=== PATIENT | male | born 1955 | race Caucasian/White ===

== ENCOUNTER 2016-10-16 12:31 | Emergency (ER) | payer OTHER ==
[2016-10-16 16:40] LABS: BILIRUBIN NEGATIVE (NEGATIVE); BLOOD NEGATIVE Ery/uL (NEGATIVE); CLARITY CLEAR (CLEAR); COLOR COLORLESS (YELLOW); GLUCOSE (U) 3+ mg/dL (NORMAL); KETONE (U) TRACE mg/dL (NEGATIVE); LEUKOCYTES NEGATIVE Leu/uL (NEGATIVE); NITRITE NEGATIVE (NEGATIVE); PROTEIN NEGATIVE (NEGATIVE); SPECIFIC GRAVITY <=1.005 (1.001-1.030); UROBILINOGEN 0.2 mg/dL (0.2-1.0)
== END 2016-10-16 17:00 | disposition home or self-care (01) ==
LOC: FER 12:31
PROVIDERS: Nurse Practitioner Family
DX: B37.49 Other urogenital candidiasis (principal); I10 Essential (primary) hypertension; F43.10 Post-traumatic stress disorder, unspecified; F32.9 Major depressive disorder, single episode, unspecified
CPT/HCPCS: 81003; 87070; 87077; 87186; 99283

== ENCOUNTER 2022-01-02 12:13 | Inpatient (IN) | payer MEDICARE ==
[~2022-01-02] VITALS: Ht 175.3 cm; Wt 73.1 kg
[~2022-01-02 12:13] MED LIST: ASPIRIN EC81 MG PO; AZITHROMYCIN250 MG PO; DIVALPROEX SOD500 M1 PO; FEOSOL325 MG PO; FLEXERIL10 MG PO; GLUCOPHAGE500 MG PO; IMDUR 30MG TABL30 MG PO; LIPITOR20 MG PO; LOPRESSOR25 MG PO; LOVAZA1 GM PO; MELATONIN3 MG PO; MELOXICAM15 MG PO; MIRTAZAPINE 15M15 MG PO; PRINIVIL10 MG PO; PROTONIX 40MG T40 MG PO; QUETIAPINE FUM400 MG PO; RISPERDAL2 MG PO; SEROQUEL 100MG100 MG PO; VITAMIN D400 UNI2 PO; VITAMINS FOR H1 EACH PO; WELLBUTRIN100 MG PO
[2022-01-02 13:14] LABS: CORONAVIRUS 2019 SARS-COV-2 NEGATIVE (NEGATIVE); INFLUENZA A NAA NEGATIVE (NEGATIVE)
[2022-01-02 13:33] LABS: LACTIC ACID 6.4 mmol/L (0.4-1.9)
[2022-01-02 13:39] LABS: ALBUMIN 3.4 g/dL (3.4-5.0); BILIRUBIN - TOTAL 2.6 mg/dL (0.2-1.0); BUN/CREAT RATIO (CALC) 20.4 RATIO; CREATININE 0.93 mg/dL (0.67-1.17); GLOBULIN (CALCULATION) 4.3 g/dL; TOTAL PROTEIN 7.7 g/dL (6.4-8.2)
[2022-01-02 13:44] LABS: POTASSIUM 2.3 mmol/L (3.5-5.1)
[2022-01-02 14:43] LABS: BASOPHIL 0.1 % (0-2); EOSINOPHIL 0 % (0-7); HCT 35.3 % (42.0-52.0); HGB 13.3 g/dl (13.2-18.0); LYMPHOCYTE 10.9 % (15-48); MCH 34.7 pg (25.0-31.0); MCHC 37.7 g/dL (32.0-36.0); MCV 92.2 fL (78.0-100.0); MONOCYTE 3.7 % (0-12); MPV 11.4 fL (6.0-9.5); NEUTROPHIL 83.2 % (41-80); NRBC 0; PLT 157 K/uL (150-400); RBC 3.83 M/uL (4.70-6.00); WBC 8.2 K/uL (4.0-10.5)
[2022-01-02 16:16] LABS: BILIRUBIN NEGATIVE (NEGATIVE); BLOOD NEGATIVE Ery/uL (NEGATIVE); CLARITY CLEAR (CLEAR); COLOR YELLOW (YELLOW); GLUCOSE (U) NORMAL (NORMAL); LEUKOCYTES NEGATIVE Leu/uL (NEGATIVE); NITRITE NEGATIVE (NEGATIVE); PROTEIN TRACE (LOW) mg/dL (NEGATIVE); SPECIFIC GRAVITY <=1.005 (1.001-1.030); pH 6.5 (5.0-9.0)
[2022-01-02 16:27] LABS: BACTERIA TRACE; URINARY RBC RARE
[2022-01-02 16:31] LABS: AMPHETAMINES NEGATIVE (NEGATIVE); BARBITURATES NEGATIVE (NEGATIVE); ECSTASY (MDMA) NEGATIVE (NEGATIVE); MARIJUANA (THC) POSITIVE (NEGATIVE); METHADONE NEGATIVE (NEGATIVE); OPIATES NEGATIVE (NEGATIVE); OXYCODONE NEGATIVE (NEGATIVE)
[2022-01-02 17:53] LABS: CREATININE 0.74 mg/dL (0.67-1.17); POTASSIUM 2.5 mmol/L (3.5-5.1)
--- NOTE | 2022-01-02 19:32 | NUR ---
RECEIVED REPORT FROM ED RN AND SPOKE WITH REGARDING PATIENT STATUS. PATIENT IS NONCOMPLIANT AND WAS RELUCTANT TO ANSWER QUESTIONS WITH STAFF. PATIENT WAS BROUGHT TO ICU AND REPORT WAS GIVEN TO NIGHTSHIFT RN. NOTHING FURTHER WAS NEEDED. STAFF WAS GETTING PATIENT SETTLED IN SHORTLY AFTER SHIFT CHANGE
[2022-01-02 19:48] LABS: LACTIC ACID 3.4 mmol/L (0.4-1.9)
[2022-01-02 20:07] LABS: BUN 25 mg/dL (7-18); BUN/CREAT RATIO (CALC) 34.2 RATIO; C-REACTIVE PROTEIN > 18.00 mg/dL (<=0.90); CHLORIDE 104 mmol/L (98-107); CO2 (BICARBONATE) 24 mmol/L (21-32); CREATININE 0.73 mg/dL (0.67-1.17); GLUCOSE 117 mg/dL (74-106); MAGNESIUM 2.5 mg/dL (1.8-2.4); POTASSIUM 3.7 mmol/L (3.5-5.1)
[2022-01-02 23:13] LABS: INR 1.5 (0.9-1.2); PROTHROMBIN TIME 17.4 SECONDS (11.8-13.4)
[2022-01-02 23:19] LABS: BUN/CREAT RATIO (CALC) 25.7 RATIO; CREATININE 0.7 mg/dL (0.67-1.17); POTASSIUM 2.7 mmol/L (3.5-5.1)
[2022-01-03 06:00] LABS: BASOPHIL 0.3 % (0-2); EOSINOPHIL 1.7 % (0-7); HCT 33.5 % (42.0-52.0); HGB 12.4 g/dl (13.2-18.0); LYMPHOCYTE 35.9 % (15-48); MCH 34.9 pg (25.0-31.0); MCV 94.4 fL (78.0-100.0); MONOCYTE 4.5 % (0-12); MPV 11.6 fL (6.0-9.5); NEUTROPHIL 55.4 % (41-80); NRBC 0; PLT 164 K/uL (150-400); RBC 3.55 M/uL (4.70-6.00); RDW 13.9 % (11.5-14.0)
[2022-01-03 07:14] LABS: ALBUMIN 2.8 g/dL (3.4-5.0); BILIRUBIN - DIRECT 0.4 mg/dL (0.00-0.20); BILIRUBIN - TOTAL 1.1 mg/dL (0.2-1.0); C-REACTIVE PROTEIN 12.5 mg/dL (<=0.90); CREATININE 0.64 mg/dL (0.67-1.17); GLOBULIN (CALCULATION) 3.8 g/dL; TOTAL PROTEIN 6.6 g/dL (6.4-8.2)
[2022-01-03 08:42] LABS: URINE CREATININE 84.58 mg/dL (29.00-226.00)
[2022-01-03 11:45] LABS: CREATININE 0.6 mg/dL (0.67-1.17); POTASSIUM 3.3 mmol/L (3.5-5.1)
[2022-01-03 17:39] LABS: BUN/CREAT RATIO (CALC) 28.1 RATIO; CREATININE 0.64 mg/dL (0.67-1.17); POTASSIUM 3.1 mmol/L (3.5-5.1)
[2022-01-03 23:56] LABS: BUN/CREAT RATIO (CALC) 25.9 RATIO; CREATININE 0.58 mg/dL (0.67-1.17); POTASSIUM 3.5 mmol/L (3.5-5.1)
[2022-01-04 05:30] LABS: BASOPHIL 0.4 % (0-2); EOSINOPHIL 1.4 % (0-7); HCT 32.1 % (42.0-52.0); LYMPHOCYTE 35.4 % (15-48); MCHC 37.4 g/dL (32.0-36.0); MCV 93.6 fL (78.0-100.0); MONOCYTE 6.2 % (0-12); MPV 11.1 fL (6.0-9.5); NEUTROPHIL 53.2 % (41-80); NRBC 0; PLT 163 K/uL (150-400); RBC 3.43 M/uL (4.70-6.00); RDW 13.7 % (11.5-14.0)
[2022-01-04 05:47] LABS: ALBUMIN 2.9 g/dL (3.4-5.0); BILIRUBIN - DIRECT 0.4 mg/dL (0.00-0.20); BILIRUBIN - TOTAL 0.9 mg/dL (0.2-1.0); BUN/CREAT RATIO (CALC) 21.9 RATIO; CREATININE 0.64 mg/dL (0.67-1.17); GLOBULIN (CALCULATION) 3.8 g/dL; POTASSIUM 3.5 mmol/L (3.5-5.1); TOTAL PROTEIN 6.7 g/dL (6.4-8.2)
[2022-01-04 15:32] LABS: CREATININE 0.6 mg/dL (0.67-1.17); POTASSIUM 3.4 mmol/L (3.5-5.1)
[2022-01-05 04:57] LABS: BASOPHIL 0.4 % (0-2); HCT 31.8 % (42.0-52.0); HGB 11.8 g/dl (13.2-18.0); LYMPHOCYTE 39.9 % (15-48); MCHC 37.1 g/dL (32.0-36.0); MCV 94.4 fL (78.0-100.0); MONOCYTE 4.8 % (0-12); NEUTROPHIL 51.9 % (41-80); NRBC 0; PLT 157 K/uL (150-400); RBC 3.37 M/uL (4.70-6.00); RDW 13.9 % (11.5-14.0)
[2022-01-05 05:26] LABS: ALBUMIN 2.6 g/dL (3.4-5.0); BILIRUBIN - DIRECT 0.3 mg/dL (0.00-0.20); BILIRUBIN - TOTAL 0.7 mg/dL (0.2-1.0); BUN/CREAT RATIO (CALC) 16.9 RATIO; CREATININE 0.59 mg/dL (0.67-1.17); FT4 (FREE T4) 1.3 ng/dL (0.76-1.46); GLOBULIN (CALCULATION) 3.3 g/dL; PHOSPHORUS 2.7 mg/dL (2.6-4.7); POTASSIUM 4.6 mmol/L (3.5-5.1); TOTAL PROTEIN 5.9 g/dL (6.4-8.2)
[2022-01-05 05:30] LABS: MAGNESIUM 2.1 mg/dL (1.8-2.4)
[2022-01-05 14:45] LABS: BUN/CREAT RATIO (CALC) 16.4 RATIO; CREATININE 0.61 mg/dL (0.67-1.17); POTASSIUM 4.7 mmol/L (3.5-5.1)
[2022-01-06 05:24] LABS: HCT 32.8 % (42.0-52.0); MCH 34.9 pg (25.0-31.0); MCHC 36.6 g/dL (32.0-36.0); MCV 95.3 fL (78.0-100.0); MPV 10.9 fL (6.0-9.5); RBC 3.44 M/uL (4.70-6.00); WBC 5.2 K/uL (4.0-10.5)
[2022-01-06 05:35] LABS: ALBUMIN 2.9 g/dL (3.4-5.0); BILIRUBIN - DIRECT 0.3 mg/dL (0.00-0.20); BILIRUBIN - TOTAL 0.8 mg/dL (0.2-1.0); BUN/CREAT RATIO (CALC) 14.5 RATIO; CREATININE 0.62 mg/dL (0.67-1.17); GLOBULIN (CALCULATION) 3.7 g/dL; POTASSIUM 4.8 mmol/L (3.5-5.1); TOTAL PROTEIN 6.6 g/dL (6.4-8.2)
[2022-01-06] MEDS ORDERED: WELLBUTRIN75 MG PO (07:18)
[2022-01-06] MEDS ORDERED: RISPERDAL2 MG PO (07:18)
[2022-01-06] MEDS ORDERED: FEOSOL325 MG PO (07:18)
== END 2022-01-06 09:35 | disposition home or self-care (01) | DRG 438 ==
LOC: FER 12:13 → FICU 17:55
PROVIDERS: Emergency Medicine; Nurse Practitioner Family; ADMIT Family Medicine
PROC: 02HV33Z Insertion of Infusion Device into Superior Vena Cava, Percutaneous Approach (ICD-10-PCS; principal; 2022-01-03)
PROC: B24BZZZ Ultrasonography of Heart with Aorta (ICD-10-PCS; 2022-01-04)
DX: K85.90 Acute pancreatitis without necrosis or infection, unspecified (principal); G93.41 Metabolic encephalopathy; E87.1 Hypo-osmolality and hyponatremia; E87.3 Alkalosis; N17.9 Acute kidney failure, unspecified; E87.6 Hypokalemia; Z20.822 Contact with and (suspected) exposure to COVID-19; R79.89 Other specified abnormal findings of blood chemistry; R73.9 Hyperglycemia, unspecified; R94.31 Abnormal electrocardiogram [ECG] [EKG]; R74.8 Abnormal levels of other serum enzymes; F17.200 Nicotine dependence, unspecified, uncomplicated; Z28.310 Unvaccinated for COVID-19
CPT/HCPCS: 36415; 36600; 71045; 76705; 80048; 80053; 80076; 80305; 81001; 82550; 82570; 82803; 82962; 83036; 83605; 83690; 83735; 83880; 83930; 84100; 84133; 84145; 84300; 84439; 84443; 84484; 85025; 85379; 85610; 86140; 93005; 94010; 97166; 97530; G0480; J1170; J1650; J2405; J3475; J3480; J7030; Q9967; U0002